=== PATIENT | male | born 1965 | race Caucasian/White ===

== ENCOUNTER 2023-04-14 11:06 | Emergency (ER) | payer BC, SELFPAY ==
[2023-04-14 11:14] VITALS: BP 131/72; PULSE 63; RESP 19; TEMP 36.6; O2SAT 98; BMI 39.2
--- NOTE | 2023-04-14 11:14 | ED.ANIMALBIT ---
HPI - Animal Bite General Chief Complaint: Animal Bite Stated Complaint: Animal bite 04/11/23 Time Seen by Provider: 04/14/23 12:57 Source: patient Mode of arrival: ambulatory Limitations: no limitations History of Present Illness HPI narrative: Patient is a 57-year-old male presenting to the emergency department with complaint of cat bite to left wrist 3 days ago. Patient reports that he feeds birds and other small animals at his home including possums, raccoons, and skunks. He states that on Thursday he noted a cat which he has previously seen in his yard and has previously pet before in his yard. He went out to pet the cat and it bit and scratched him on the left wrist. States he had to shake his forearm to get the cat off. Reports pain to distal radius. Denies fever. Denies worsening erythema or warmth, denies drainage or discharge. Believes Tdap was 9 years ago. complaint: animal bite Onset (ago): day(s) Animal: cat Description of animal: unknown animal and wild animal Mechanism: bite and scratch Location - Extremities: left: forearm Context: playing with animal Treatments prior to arrival: other (wrist splint) Related Data Previous Rx's Medication Instructions Recorded amoxicillin 875 mg-potassium 1 tab PO BID #14 tabs 04/14/23 clavulanate 125 mg tablet Allergies Allergy/AdvReac Type Severity Reaction Status Date / Time bee pollen [BEE STINGS] Allergy Unknown SWELLING Verified 04/14/23 11:13 PULLIAM MITCHELL Allergy Unknown SWELLING Uncoded 04/14/23 11:13 Review of Systems Review of Systems: As per HPI. Yes all other systems are reviewed and are negative Constitutional: Constitutional: Reports as per HPI [facility] Social History Social History Advance Directives: No Physical Exam ED Vital Signs: Vital Signs - 24 hr 04/14/23 11:14 Temperature 98 F Pulse Rate 63 Respiratory Rate 19 Blood Pressure 131/72 Pulse Oximetry 98 Oxygen Delivery Method Room Air BMI result Body Mass Index 39.2 Vital signs have been reviewed and appear to be correct. Blood pressure normal. Heart rate normal. Respiratory rate normal. Temperature normal. Oxygen saturation normal. Const General: cooperative, healthy appearing and no acute distress Orientation/consciousness: oriented to person, oriented to place, oriented to time and patient oriented x3 Limitations: no limitations HENMT Head: Yes normocephalic and Yes atraumatic Ears: external ears normal General nose exam: Normal external nose present Face and sinus: Yes face symmetric Mouth: oropharynx normal and moist mucous membranes Throat: Yes uvula midline Eyes Pupils: Equal, round and reactive pupils present Neck Neck: Yes normal visual inspection and Yes supple Resp Effort & Inspection: normal respiratory effort and able to speak in complete sentences Auscultation: clear to auscultation bilaterally Cardio Rate: regular rate Rhythm: regular rhythm Heart sounds: S1 normal heart sound present and S2 normal heart sound present Skin General skin exam: elasticity normal and turgor normal Neuro General: oriented to person, oriented to place, oriented to time, patient oriented x3, moves all extremities, no focal motor deficits and CN's II-XI intact bilaterally Cranial nerves: Yes Equal, round and reactive pupils present Cognition (Neuro): normal cognition Extrem General: Yes full ROM, Yes no pedal edema and Yes no calf tenderness Left upper extremity: wrist forearm distal medial Details: tenderness Location: of the distal radius, normal ROM, abrasion (linear to distal radius), normal vascular exam, radial pulse present and other (puncture wound to distal radius and anterior ulna without surrounding erythema or warmth); no swelling and no unusual warmth Elbow/forearm/wrist images: 1. puncture 2. puncture 3. abrasion 4. abrasion Psych Mental Status: mental status grossly normal Affect: normal affect Thought process: Normal thought process present Course Course Course Narrative: RME: 57 year-old M w/ PMHx presenting to the ED c/o cat bite to E Thursday night from stray cat. Patient not UTD on vaccinations. Cat unknown [id number] status superficial abrasions/punctures noted to LUE TDAP, rabies ordered Full HPI, ROS and PE to be performed by primary ED provider. Medications Administered Discontinued Medications Generic Name Dose Route Start Last Admin Trade Name Freq PRN Reason Stop Dose Admin Diphtheria/Tetanus/Acell Pertussis 0.5 ml 04/14/23 11:15 04/14/23 13:46 Diphth,Pertus(Acell),Tet Adult 0.5 Ml Syringe IM 04/14/23 11:16 0.5 ml .ONCE ONE Administration Rabies Immune Globulin 2,480 unit 04/14/23 11:29 04/14/23 13:47 Rabies Immune Globulin/Pf 900 Unit/3 Ml Vial 20 unit/kg (2480 unit) 04/14/23 11:30 2,480 unit IM Administration ONCE ONE Rabies Vaccine Human Diploid Cell 1 ml 04/14/23 11:29 04/14/23 13:46 Rabies Vaccine, Human Diploid (Imovax) 1 Ml Vial IM 04/14/23 11:30 1 ml .ONCE ONE Administration Medical Decision Making Medical Decision Making [facility] Narrative: Patient is a 57-year-old male presenting to the emergency department with complaint of cat bite to left wrist 3 days ago. On exam patient is awake, A+Ox3, VS WNL, afebrile, normal neurological exam without focal deficits, physical exam findings as above. Given reported symptoms and physical exam findings, initial differential includes animal bite, cellulitis, potential rabies exposure. Tdap updated. Rabies vaccine and immunoglobulin ordered by triage provider. Additional rabies vaccines ordered for short stay. Will prescribe Augmentin prophylactically, no evidence of cellulitis at this time. Return precautions discussed at bedside. Patient verbalized understanding of and agreement with plan. Differential Diagnosis Differential Diagnoses: The differential diagnosis associated with the presentation includes As per MDM. External Record Review External record reviewed: Inpatient record, Office record and Outpatient record Prescription Management I considered prescription management with: Antibiotic Discharge Plan Discharge Clinical Impression: Cat bite Patient Disposition: Home, Self-Care Instructions: Amoxicillin/Clavulanate Potassium (By mouth), Diphtheria/Acellular Pertussis/Tetanus Vaccine (By injection), Animal Bite (ED), Rabies (ED) Additional Instructions: You were evaluated in the ED after a cat bite. You are being prescribed antibiotics to prevent infection, please complete the full course as prescribed. Your tetanus vaccine was updated at today's visit. You were given the first dose of the rabies vaccine as well as the rabies immunoglobulin in the ED today. Please call short stay tomorrow at the highlighted numbed to schedule the additional rabies vaccines. Please follow up with your primary care provider. Return to the emergency department if you develop new redness or swelling to your arm, thick yellow drainage from your wounds, increased pain, difficulty moving your wrist or hand, fevers 100.4F or greater, or any other concerning symptoms. Prescriptions: New amoxicillin-pot clavulanate 875-125 mg tablet 1 tab PO BID Qty: 14 0RF Stand Alone Forms: Work/School Release
[2023-04-14] MEDS: Diphth,Pertus(ACell),Tet Adult 0.5 ML SYRINGE IM (13:46)
[2023-04-14] MEDS: Rabies Vaccine, Human Diploid (Imovax) 1 ML VIAL IM (13:46)
[2023-04-14] MEDS: Rabies Immune Globulin/PF 900 UNIT/3 ML VIAL 2480 UNIT IM (13:47)
--- NOTE | 2023-04-14 14:01 | PC.NURSE ---
pt medicated per MAR- TdaP updated in left arm. Immovax in right deltoid, Imogam administered in bilateral anterior thigh, and bilateral glute. well tolerated by pt
--- NOTE | 2023-04-14 14:14 | PC.NURSE ---
[place]ies [place] [facility] [place], original copies filed in blue rabies binder
== END 2023-04-14 14:15 | disposition home or self-care (01) ==
PROVIDERS: Emergency Provider Emergency Medicine Emergency Medical Services; PCP Internal Medicine
DX: S61.532A Puncture wound without foreign body of left wrist, initial encounter (principal); S60.812A Abrasion of left wrist, initial encounter; W55.01XA Bitten by cat, initial encounter; Y93.89 Activity, other specified; Y92.017 Garden or yard in single-family (private) house as the place of occurrence of the external cause; Y99.9 Unspecified external cause status; Z20.3 Contact with and (suspected) exposure to rabies
CPT/HCPCS: 90375; 90471; 90472; 90675; 90715; 96372; 99282; 99284

== ENCOUNTER 2023-04-17 09:27 | Outpatient (REF) | payer BC, SELFPAY | END 2023-04-17 09:28 | disposition home or self-care (01) | LOC: HO.MDS 09:27 | PROVIDERS: Visit Provider Registered Nurse Emergency | DX: Z20.3 Contact with and (suspected) exposure to rabies (principal); S61.452D Open bite of left hand, subsequent encounter; W55.01XD Bitten by cat, subsequent encounter | CPT/HCPCS: 90471; 90675 ==

== ENCOUNTER 2023-04-22 08:58 | Outpatient (REF) | payer BC, SELFPAY | END 2023-04-22 08:59 | disposition home or self-care (01) | LOC: HO.MDS 08:58 | PROVIDERS: Visit Provider Registered Nurse Emergency | DX: Z20.3 Contact with and (suspected) exposure to rabies (principal); S61.452D Open bite of left hand, subsequent encounter; W55.01XD Bitten by cat, subsequent encounter | CPT/HCPCS: 90471; 90675 ==

== ENCOUNTER 2023-04-28 07:53 | Outpatient (REF) | payer BC, SELFPAY | END 2023-04-28 07:54 | disposition home or self-care (01) | LOC: HO.MDS 07:53 | PROVIDERS: Visit Provider Registered Nurse Emergency | DX: Z20.3 Contact with and (suspected) exposure to rabies (principal); S61.452D Open bite of left hand, subsequent encounter; W55.01XD Bitten by cat, subsequent encounter | CPT/HCPCS: 90471; 90675 ==